=== PATIENT | female | born 1995 | race Caucasian/White ===

== ENCOUNTER 2017-02-23 12:39 | Outpatient (CLI) | payer OTHER ==
[2017-02-23] MEDS ORDERED: BETAMET ACET/BETAMET NA INJ 6 MG/1 ML ONE (12:45)
[2017-02-23] MEDS ORDERED: BETAMET ACET/BETAMET NA INJ 6 MG/1 ML IM ONE (12:54)
== END 2017-02-23 12:55 | disposition home or self-care (01) ==
LOC: LC 12:39
PROVIDERS: ATTEND Obstetrics & Gynecology
DX: Z34.92 Encounter for supervision of normal pregnancy, unspecified, second trimester (principal); Z3A.24 24 weeks gestation of pregnancy
CPT/HCPCS: 96372; J0702

== ENCOUNTER 2017-02-24 13:04 | Outpatient (CLI) | payer OTHER ==
[2017-02-24] MEDS ORDERED: BETAMET ACET/BETAMET NA INJ 6 MG/1 ML ONE (13:09)
[2017-02-24] MEDS ORDERED: BETAMET ACET/BETAMET NA INJ 6 MG/1 ML IM PRN (13:30)
== END 2017-02-24 13:21 | disposition home or self-care (01) ==
LOC: LC 13:04
PROVIDERS: ATTEND Obstetrics & Gynecology Gynecology
DX: Z34.92 Encounter for supervision of normal pregnancy, unspecified, second trimester (principal); Z3A.24 24 weeks gestation of pregnancy
CPT/HCPCS: 96372; J0702

== ENCOUNTER 2018-01-09 11:21 | Emergency (ER) | payer MEDICAID ==
--- NOTE | 2018-01-09 12:18 | ER Document Report ---
ED GI/ - General Chief Complaint: Pelvic Pain Stated Complaint: PELVIC PAIN Time Seen by Provider: 01/09/18 12:18 Mode of Arrival: Ambulatory Information source: Patient Notes: Patient complained of pelvic pain which started this morning. She denies any trauma or injury. TRAVEL OUTSIDE OF THE [place] IN LAST 30 DAYS: No - HPI Patient complains to provider of: Pelvic pain Onset: This morning Timing/Duration: Sudden Quality of pain: Achy, Dull Severity at maximum: Mild Severity in ED: Mild Pain Level: 2 Location: Pelvis Vaginal bleeding (Compared to normal period): None OB ultrasound done: No vitamins taken: No Sexual history: Active Associated symptoms: None Exacerbated by: Denies Relieved by: Denies Similar symptoms previously: No Recently seen / treated by doctor: No - Related Data Allergies/Adverse Reactions: Sulfa (Sulfonamide Antibiotics) Allergy (Verified 01/09/18 11:23) Past Medical History - Social History Smoking Status: Unknown if Ever Smoked Family History: Reviewed & Not Pertinent Review of Systems - Review of Systems Constitutional: denies: Chills, Fever EENT: No symptoms reported Cardiovascular: No symptoms reported Respiratory: No symptoms reported Gastrointestinal: No symptoms reported Genitourinary: No symptoms reported Female Genitourinary: No symptoms reported Musculoskeletal: No symptoms reported Skin: No symptoms reported Hematologic/Lymphatic: No symptoms reported Neurological/Psychological: No symptoms reported -: Yes All other systems reviewed and negative Physical Exam - Vital signs Vitals: Temp Pulse Resp BP Pulse Ox 98.3 F 84 14 135/81 H 99 01/09/18 11:32 01/09/18 11:32 01/09/18 11:32 01/09/18 11:32 01/09/18 11:32 - General General appearance: Appears well, Alert In distress: None - HEENT Head: Normocephalic, Atraumatic Eyes: Normal Pupils: PERRL - Respiratory Respiratory status: No respiratory distress Chest status: Nontender Breath sounds: Normal Chest palpation: Normal - Cardiovascular Rhythm: Regular Heart sounds: Normal auscultation Murmur: No - Abdominal Inspection: Normal Distension: No distension Bowel sounds: Normal Tenderness: Nontender Organomegaly: No organomegaly - Genitourinary External exam: Normal. No: Laceration Speculum exam: Normal, Cervix closed. No: Cervix open, Vaginal discharge, Vaginal lacerations Vaginal bleeding: None Bimanuel exam: Adnexal tenderness - Left. No: Cervical motion tender, Adnexal mass, Uterus enlarged Notes: Rn Plastic Surgery was Ms. Phoebe RN. - Back Back: Normal, Nontender - Extremities General upper extremity: Normal inspection, Nontender, Normal color, Normal ROM , Normal temperature General lower extremity: Normal inspection, Nontender, Normal color, Normal ROM , Normal temperature, Normal weight bearing. No: Breana's sign - Neurological Neuro grossly intact: Yes Cognition: Normal Orientation: AAOx4 [place] Coma Scale Eye Opening: Spontaneous [place] Coma Scale Verbal: Oriented Anaya Coma Scale Motor: Obeys Commands Anaya Coma Scale Total: 15 Speech: Normal Motor strength normal: LUE, RUE, LLE, RLE Sensory: Normal - Psychological Associated symptoms: Normal affect, Normal mood - Skin Skin Temperature: Warm Skin Moisture: Dry Skin Color: Normal Course - Vital Signs Vital signs: Temp Pulse Resp BP Pulse Ox 98.4 F 80 16 124/86 H 100 01/09/18 16:00 01/09/18 16:00 01/09/18 16:00 01/09/18 16:00 01/09/18 16:00 - Laboratory Result Diagrams: 01/09/18 12:48 01/09/18 12:48 Laboratory results interpreted by me: 01/09/18 12:48 WBC 10.7 H Plt Count 503 H - Diagnostic Test Radiology reviewed: Image reviewed, Reports reviewed Discharge - Discharge Clinical Impression: Left ovarian cyst Condition: Stable Disposition: HOME, SELF-CARE Instructions: Ovarian Cyst ([facility]) Additional Instructions: Please follow up with Dr Soliz on Wednesday morning. Return to the ED if your condition worsens. Prescriptions: Ibuprofen 800 mg PO TID PRN #20 tablet PRN Reason: Pain Scale Of 3 Referrals: ENRIQUETA BERNAL MD [Primary Care Provider] - Follow up as needed
[2018-01-09 13:06] LABS: ABSOLUTE EOSINOPHILS # (AUTO) 0.2 10^3/uL (0.0-0.6); ABSOLUTE LYMPHOCYTES (AUTO) 3.3 10^3/uL (0.5-4.7); ABSOLUTE MONOCYTES (AUTO) 0.7 10^3/uL (0.1-1.4); ABSOLUTE NEUT (AUTO) 6.6 10^3/uL (1.7-8.2); BASOPHILS % (AUTO) 0.3 % (0-2); EOSINOPHILS % (AUTO) 1.6 % (0-6); HEMATOCRIT 37.9 % (36.0-47.0); HEMOGLOBIN 13.1 g/dL (12.0-15.5); LYMPHOCYTES % (AUTO) 30.8 % (13-45); MEAN CORPUSCULAR HEMOGLOBIN 28.7 pg (27.0-33.4); MEAN CORPUSCULAR HGB CONC 34.5 g/dL (32.0-36.0); MEAN CORPUSCULAR VOLUME 83 fl (80-97); MONOCYTES % (AUTO) 6.2 % (3-13); PLATELET COUNT 503 10^3/uL (150-450); RED BLOOD COUNT 4.57 10^6/uL (3.72-5.28); RED CELL DISTRIBUTION WIDTH 12.6 % (11.5-14.0); SEGMENTED NEUTROPHILS % (AUTO) 61.1 % (42-78); TOTAL CELLS COUNTED % (AUTO) 100 %; WHITE BLOOD COUNT 10.7 10^3/uL (4.0-10.5)
[2018-01-09 13:08] LABS: APPEARANCE,URINE SLIGHTLY-CLOUDY; BILIRUBIN,URINE NEGATIVE (NEGATIVE); COLOR,URINE YELLOW; GLUCOSE, URINE NEGATIVE (NEGATIVE); KETONES,URINE NEGATIVE (NEGATIVE); LEUKOCYTE ESTERASE,URINE NEGATIVE (NEGATIVE); NITRITE,URINE NEGATIVE (NEGATIVE); PROTEIN,URINE NEGATIVE (NEGATIVE); URINE SPECIFIC GRAVITY 1.023; UROBILINOGEN,URINE NEGATIVE mg/dL (<2.0)
[2018-01-09 13:15] LABS: ALANINE AMINOTRANSFERASE 25 U/L (9-52); ALBUMIN 4.7 g/dL (3.5-5.0); ALKALINE PHOSPHATASE 53 U/L (38-126); ANION GAP 11 (5-19); ASPARTATE AMINO TRANSFERASE 16 U/L (14-36); BILIRUBIN,DIRECT 0.2 mg/dL (0.0-0.4); BILIRUBIN,TOTAL 0.5 mg/dL (0.2-1.3); BLOOD UREA NITROGEN 10 mg/dL (7-20); CALCIUM 9.8 mg/dL (8.4-10.2); CARBON DIOXIDE 26 mmol/L (22-30); CHLORIDE 104 mmol/L (98-107); GLUCOSE 98 mg/dL (75-110); POTASSIUM 4.3 mmol/L (3.6-5.0); SODIUM 140.8 mmol/L (137-145)
[2018-01-09] MEDS ORDERED: MORPHINE SULFATE 10 MG/ML INJ IV ONE (13:19)
[2018-01-09] MEDS ORDERED: ONDANSETRON HCL INJ/PF 4 MG/2 ML SDV IV ONE (13:19)
[2018-01-09 13:47] LABS: RBCS (WET MOUNT) NO RBCS SEEN; T.VAGINALIS (WET MOUNT) COULD NOT PERFORM; WBCS (WET MOUNT) NO WBCS SEEN; YEAST (WET MOUNT) NO YEAST SEEN
[2018-01-09 15:11] LABS: CHLAM PCR NOT DETECTED (NOT DETECT); GON PCR NOT DETECTED (NOT DETECT)
--- NOTE | 2018-01-09 15:16 | RADIOLOGY REPORT (SQ) ---
EXAM DESCRIPTION: U/S NON OB PEL TV W/DOPPLER COMPLETED DATE/TIME: 01/09/2018 2:36 pm REASON FOR STUDY: Pelvic Pain COMPARISON: None. TECHNIQUE: Dynamic and static grayscale images acquired of the pelvis via transvaginal approach and recorded on PACS. Additional selected color Doppler and spectral images recorded. LIMITATIONS: None. FINDINGS: UTERUS: Contour normal. No mass. ENDOMETRIAL STRIPE: No focal or generalized thickening. No masses. CERVIX: Small nabothian cysts. RIGHT OVARY AND DOPPLER: Normal size. No worrisome masses. Normal arterial vascular flow without evid ence for torsion. LEFT OVARY AND DOPPLER: Normal size. 3.5 x 3.3 x 4.2 cm complex left ovarian cyst. Normal arterial v ascular flow without evidence for torsion. FREE FLUID: Moderate free fluid. OTHER: No other significant finding. MEASUREMENTS: UTERUS: 7.2 x 6.0 x 4.2 cm ENDOMETRIAL STRIPE: 10 mm RIGHT OVARY: 3.5 x 2.5 x 2.1 cm LEFT OVARY: 5.7 x 4.7 x 5.1 cm IMPRESSION: 3.5 x 3.3 x 4.2 cm complex left ovarian cyst. No evidence for torsion. Moderate free f luid. TECHNICAL DOCUMENTATION: JOB ID: [id number] [place]-72 2010 [employer]- All Rights Reserved Rev-08/13 Reading location - IP/workstation name: [email or web address]
[2018-01-09 16:01] VITALS: BP 124/86
== END 2018-01-09 16:00 | disposition home or self-care (01) ==
LOC: ER 11:21
DX: N83.202 Unspecified ovarian cyst, left side (principal); R10.2 Pelvic and perineal pain
CPT/HCPCS: 99284; 96374; 96375; 36415; 87210; 85025; 81025; 80053; 81001; 87491; 87591; 76830; 93976; J2270; J2405

== ENCOUNTER 2019-01-01 09:58 | Emergency (ER) | payer MEDICAID ==
[2019-01-01] MEDS ORDERED: KETOROLAC TROMETHAMINE 60 MG/2 ML SDV IM ONE (10:31)
--- NOTE | 2019-01-01 10:31 | ER Document Report ---
ED GI/ - General Chief Complaint: Abdominal Pain Stated Complaint: LOWER ABDOMINAL PAIN Time Seen by Provider: 01/01/19 10:18 Mode of Arrival: Ambulatory Information source: Patient, Relative TRAVEL OUTSIDE OF THE [place] IN LAST 30 DAYS: No - HPI Patient complains to provider of: Pelvic pain - Pt has h/o PCOS and has c/o lower abdominal pain. She denies vag. d/c or bleeding but states her menstrual periods have been more irregular in the past few months. States LNMP was 11/14 - Related Data Allergies/Adverse Reactions: Sulfa (Sulfonamide Antibiotics) Allergy (Verified 01/01/19 10:24) Past Medical History - General Information source: Patient - Social History Smoking Status: Never Smoker Family History: Reviewed & Not Pertinent Patient has suicidal ideation: No Patient has homicidal ideation: No Renal/ Medical History: Denies: Hx Peritoneal Dialysis GI Medical History: Reports: Hx Gastroesophageal Reflux Disease Past Surgical History: Reports: Hx Section, Hx Orthopedic Surgery Review of Systems - Review of Systems Constitutional: No symptoms reported EENT: No symptoms reported Cardiovascular: No symptoms reported Respiratory: No symptoms reported Gastrointestinal: No symptoms reported Female Genitourinary: See HPI, Irregular period Musculoskeletal: No symptoms reported Neurological/Psychological: No symptoms reported -: Yes All other systems reviewed and negative Physical Exam - Vital signs Vitals: Temp Pulse Resp BP Pulse Ox 97.5 F 79 18 145/86 H 98 01/01/19 10:07 01/01/19 10:07 01/01/19 10:07 01/01/19 10:07 01/01/19 10:07 - General In distress: Mild - Respiratory Respiratory status: No respiratory distress Breath sounds: Normal - Cardiovascular Rhythm: Regular Heart sounds: Normal auscultation Murmur: No - Abdominal Inspection: Normal Distension: No distension Bowel sounds: Normal Tenderness: Tender - min TTP bilateral lower quadrants without peritoneal signs. BS + Organomegaly: No organomegaly - Genitourinary External exam: Other - pelvic deferred per pt. request Course - Re-evaluation Re-evalutation: 01/01/19 13:09 pt. felt better after pain meds - expressed desire to go home with - Vital Signs Vital signs: Temp Pulse Resp BP Pulse Ox 97.5 F 79 18 145/86 H 98 01/01/19 10:07 01/01/19 10:07 01/01/19 10:07 01/01/19 10:07 01/01/19 10:07 - Diagnostic Test Radiology reviewed: Reports reviewed - R ovarian cyst Discharge - Discharge Clinical Impression: Ovarian cyst Qualifiers: Laterality: right Qualified Code(s): N83.201 - Unspecified ovarian cyst, right side Condition: Stable Disposition: HOME, SELF-CARE Additional Instructions: rest, take meds as prescribed, return if worse Prescriptions: Tramadol HCl [Ultram] 50 mg PO BID #14 tablet Referrals: REID TORRES MD [ACTIVE STAFF] - Follow up as needed
[2019-01-01 10:53] LABS: APPEARANCE,URINE CLEAR; BILIRUBIN,URINE NEGATIVE (NEGATIVE); COLOR,URINE YELLOW; GLUCOSE, URINE NEGATIVE (NEGATIVE); KETONES,URINE NEGATIVE (NEGATIVE); LEUKOCYTE ESTERASE,URINE NEGATIVE (NEGATIVE); NITRITE,URINE NEGATIVE (NEGATIVE); PROTEIN,URINE NEGATIVE (NEGATIVE); UROBILINOGEN,URINE NEGATIVE mg/dL (<2.0)
--- NOTE | 2019-01-01 12:47 | RADIOLOGY REPORT (SQ) ---
EXAM DESCRIPTION: U/S NON OB PEL TV W/DOPPLER COMPLETED DATE/TIME: 01/01/2019 12:33 pm REASON FOR STUDY: pelvic pain COMPARISON: Pelvic ultrasound 10/07/2018, 01/09/2018. TECHNIQUE: Dynamic and static grayscale images acquired of the pelvis via transvaginal approach and recorded on PACS. Additional selected color Doppler and spectral images recorded. LIMITATIONS: None. FINDINGS: UTERUS: The uterus measures 7.1 x 4.9 x 4.5 cm. No focal myometrial mass was seen. ENDOMETRIAL STRIPE: The endometrium measures 1.4 cm in double wall thickness. CERVIX: The cervix measures 1.9 cm in length. RIGHT OVARY AND DOPPLER: The right ovary measures 5.4 x 3.5 x 2.9 cm. Flow by Doppler was shown to t he right ovary. Small follicles are noted. There is a 3.9 x 1.3 x 1.0 cm cyst. LEFT OVARY AND DOPPLER: The left ovary measures 2.7 x 2.5 x 3.6 cm. Flow by Doppler was shown to the left ovary. Small follicles are noted. FREE FLUID: Small amount of free fluid. IMPRESSION: 3.9 cm cyst at the right ovary. Small amount of free pelvic fluid. TECHNICAL DOCUMENTATION: JOB ID: [id number] [place]-[id number] 2010 [employer]- All Rights Reserved Rev-08/13 Reading location - IP/workstation name: [email or web address]
[2019-01-01 13:22] VITALS: BP 136/83
== END 2019-01-01 13:22 | disposition home or self-care (01) ==
LOC: ER 09:58
DX: N83.201 Unspecified ovarian cyst, right side (principal); R10.30 Lower abdominal pain, unspecified; R10.2 Pelvic and perineal pain; Z88.2 Allergy status to sulfonamides
CPT/HCPCS: 99284; 96374; 81025; 81001; 76830; 93976; J1885

== ENCOUNTER 2019-08-18 00:39 | Observation (INO) | payer MEDICAID ==
[2019-08-18] MEDS ORDERED: LORAZEPAM INJ 2 MG/1 ML VIAL IV ONE ×2 (01:03→06:23)
[2019-08-18] MEDS ORDERED: PHENYTOIN SODIUM INJ/PF 250 MG/5 ML SDV IV ONE ×2 (01:03→08:00)
[2019-08-18] MEDS ORDERED: DIPHENHYDRAMINE HCL 50 MG/ML VIAL IV ONE (01:07)
[2019-08-18 01:31] LABS: ABSOLUTE BASOPHILS # (AUTO) 0.1 10^3/uL (0.0-0.2); ABSOLUTE EOSINOPHILS # (AUTO) 0.1 10^3/uL (0.0-0.6); ABSOLUTE LYMPHOCYTES (AUTO) 4.2 10^3/uL (0.5-4.7); ABSOLUTE MONOCYTES (AUTO) 0.8 10^3/uL (0.1-1.4); ABSOLUTE NEUT (AUTO) 6.5 10^3/uL (1.7-8.2); BASOPHILS % (AUTO) 0.5 % (0-2); EOSINOPHILS % (AUTO) 0.8 % (0-6); HEMATOCRIT 34.5 % (36.0-47.0); MEAN CORPUSCULAR HEMOGLOBIN 29.1 pg (27.0-33.4); MEAN CORPUSCULAR HGB CONC 34.9 g/dL (32.0-36.0); MEAN CORPUSCULAR VOLUME 84 fl (80-97); MONOCYTES % (AUTO) 6.6 % (3-13); PLATELET COUNT 412 10^3/uL (150-450); RED BLOOD COUNT 4.13 10^6/uL (3.72-5.28); RED CELL DISTRIBUTION WIDTH 12.5 % (11.5-14.0); SEGMENTED NEUTROPHILS % (AUTO) 56.1 % (42-78); TOTAL CELLS COUNTED % (AUTO) 100 %; WHITE BLOOD COUNT 11.5 10^3/uL (4.0-10.5)
--- NOTE | 2019-08-18 01:36 | ER Document Report ---
ED General - General Chief Complaint: Seizure Stated Complaint: SEIZURE Time Seen by Provider: 08/18/19 01:03 Mode of Arrival: Medic Information source: Emergency Med Personnel - via discussion with family Notes: 08/18/19 01:07 - ED Nursing Note by DAIANA GORE Num: [id number] : 1995 Patient Age: 24 patient presents to ED via EMs from home for c/o seizures. per EMS, they witness three seizures prior to arrival to [facility]. patient does not have hx of seizures. upon arrival patient in postictal state. patient responsive to voice, pupils dilated. patient had seizure two minute seizure from [id number]. this RN called Dr. Burns to bedside. patient placed on full cardiac monitoring and 2L NC. my notes 24-year-old female arrived by EMS with witnessed 2-3 seizures in route by EMS. Patient does not have any seizure history but does have a history of eclampsia while she was . Patient was just begun on Cymbalta and Lyrica and has been acting goofy according to family while on these medicines. Patient was given IV Versed 5 mg by EMS but was witnessed by nursing to have a grand mal seizure upon arrival. Patient was written for Ativan 1 mg IV and Dilantin 1 g IV by my orders. TRAVEL OUTSIDE OF THE [place] IN LAST 30 DAYS: No - HPI Onset: Just prior to arrival Onset/Duration: Sudden, Persistent, Worse Quality of pain: Achy Severity: Mild Associated symptoms: Weakness Exacerbated by: Other - in active seizure during exam Relieved by: denies: Other Similar symptoms previously: Yes - eclampsia Recently seen / treated by doctor: No - Related Data Allergies/Adverse Reactions: Sulfa (Sulfonamide Antibiotics) Allergy (Verified 01/01/19 10:24) Past Medical History - General Information source: Emergency Med Personnel - Social History Smoking Status: Unknown if Ever Smoked Cigarette use (# per day): No Chew tobacco use (# tins/day): No Smoking Education Provided: No Frequency of alcohol use: unknown Drug Abuse: Other - unknown Lives with: Family Family History: Reviewed & Not Pertinent Patient has suicidal ideation: No Patient has homicidal ideation: No Renal/ Medical History: Denies: Hx Peritoneal Dialysis GI Medical History: Reports: Hx Gastroesophageal Reflux Disease Past Surgical History: Reports: Hx Section, Hx Orthopedic Surgery Review of Systems - Review of Systems -: Yes ROS unobtainable due to patient's medical condition Constitutional: Weakness Physical Exam - Vital signs Vitals: Temp 97.8 F 08/18/19 00:40 Interpretation: Tachycardic - General General appearance: Lethargic - HEENT Head: Normocephalic, Atraumatic Eyes: Other - dilated pupils Conjunctiva: Normal Cornea: Normal Eyelashes: Normal Pupils: Dilated Ears: Normal External canal: Normal Sinus: Normal Nasal: Normal Mouth/Lips: Normal Mucous membranes: Normal Pharynx: Normal Neck: Normal - Respiratory Respiratory status: No respiratory distress Chest status: Nontender Breath sounds: Normal Chest palpation: Normal - Cardiovascular Rhythm: Tachycardia Murmur: No - Abdominal Inspection: Normal Distension: No distension Organomegaly: No organomegaly - Rectal Tenderness: No - Genitourinary External exam: Normal - Back Back: Normal - Extremities General upper extremity: Normal inspection, Other - Patient moving hands and rotational movement of the wrist and fingers nonpurposeful General lower extremity: Normal inspection - Except for downgoing toes - Neurological Cognition: Confused Anaya Coma Scale Eye Opening: To Pain Anaya Coma Scale Verbal: Confused Anaya Coma Scale Motor: Localizes to Pain [place] Coma Scale Total: 11 Speech: Other - no speech - Psychological Associated symptoms: Confused, Restlessness - Skin Skin Temperature: Warm Skin Moisture: Dry Course - Vital Signs Vital signs: Temp Pulse Resp BP Pulse Ox 97.8 F 17 113/68 98 08/18/19 01:01 08/18/19 04:01 08/18/19 04:00 08/18/19 04:01 - Laboratory Result Diagrams: 08/18/19 01:21 08/18/19 01:21 Laboratory results interpreted by me: 08/18/19 08/18/19 08/18/19 01:21 01:21 01:21 WBC 11.5 H Hct 34.5 L Chloride 109 H Carbon Dioxide 21 L Glucose 124 H Ur Leukocyte Esterase Salicylates < 1.0 L 08/18/19 03:43 WBC Hct Chloride Carbon Dioxide Glucose Ur Leukocyte Esterase TRACE H Salicylates - Diagnostic Test Radiology reviewed: Reports reviewed - EKG Interpretation by Me EKG shows normal: Sinus rhythm Rate: Tachycardia - 103 bpm Critical Care Note - Critical Care Note Total time excluding time spent on procedures (mins): 90 Comments: I discussed this case with Dr. Kalyan Sanchez and he advises alcohol salicylate level and finalization of urine and UDS before admission call him back with results. Kalyan Ochoa was recalled around 0 500 and he advised [facility] telemetry Discharge - Discharge Clinical Impression: Seizure, Status epilepticus Condition: Fair Disposition: ADMITTED INPATIENT Admitting Provider: Daniel (Hospitalist) Unit Admitted: Telemetry Additional Instructions: Transfer patient to [facility] telemetry
[2019-08-18 01:55] LABS: ALBUMIN 4.2 g/dL (3.5-5.0); ALKALINE PHOSPHATASE 61 U/L (38-126); ANION GAP 8 (5-19); ASPARTATE AMINO TRANSFERASE 20 U/L (14-36); BILIRUBIN,TOTAL 0.2 mg/dL (0.2-1.3); BLOOD UREA NITROGEN 12 mg/dL (7-20); CALCIUM 9.2 mg/dL (8.4-10.2); CARBON DIOXIDE 21 mmol/L (22-30); CHLORIDE 109 mmol/L (98-107); GLUCOSE 124 mg/dL (75-110); POTASSIUM 3.6 mmol/L (3.6-5.0)
[2019-08-18 02:25] LABS: CREATINE KINASE MB 1.46 ng/mL (<4.55)
[2019-08-18 02:31] LABS: TROPONIN I < 0.012 ng/mL
[2019-08-18 03:56] LABS: APPEARANCE,URINE CLEAR; BILIRUBIN,URINE NEGATIVE (NEGATIVE); COLOR,URINE YELLOW; GLUCOSE, URINE NEGATIVE (NEGATIVE); KETONES,URINE NEGATIVE (NEGATIVE); LEUKOCYTE ESTERASE,URINE TRACE (NEGATIVE); NITRITE,URINE NEGATIVE (NEGATIVE); PROTEIN,URINE NEGATIVE (NEGATIVE); URINE SPECIFIC GRAVITY 1.013; UROBILINOGEN,URINE NEGATIVE mg/dL (<2.0)
--- NOTE | 2019-08-18 04:04 | RADIOLOGY REPORT (SQ) ---
INDICATION: seizure. COMPARISON: None CORRELATION: None TECHNIQUE: Noncontrast spiral axial CT images were obtained from the skull base to vertex. This exam was performed according to our departmental dose-optimization program, which includes automated exposure control, adjustment of the mA and/or kV according to patient size and/or use of iterative reconstruction techniques. FINDINGS: There is no evidence of acute intracranial hemorrhage, midline shift, mass effect or mass lesion. Meidna-white differentiation is normal. There is no evidence of acute large territory infarct. Ventricles and extracerebral spaces are within normal limits, for age. The visualized paranasal sinuses are grossly clear. The orbits and eyeballs are unremarkable. The mastoid air cells are clear. Skull base and calvarium appear intact. IMPRESSION: No acute intracranial process is identified.
[2019-08-18 04:06] LABS: ALCOHOL < 10 mg/dL (NONE DETECTED); SALICYLATE < 1.0 mg/dL (2.0-20.0)
--- NOTE | 2019-08-18 04:08 | RADIOLOGY REPORT (SQ) ---
CLINICAL INDICATION: seizure. TECHNIQUE: A single portable AP view was obtained of the chest at 0331 hours. COMPARISON: None. FINDINGS: The cardiomediastinal silhouette is normal. The lungs are grossly clear. No evidence of effusion or pneumothorax. The visualized bones are unremarkable. Lungs of low volume IMPRESSION: No evidence of active intrathoracic disease. Lungs of low volume but clear
[2019-08-18 04:15] LABS: URINE AMPHETAMINES SCREEN NEGATIVE; URINE BARBITURATES SCREEN NEGATIVE; URINE COCAINE SCREEN NEGATIVE; URINE MARIJUANA (THC) SCREEN NEGATIVE; URINE METHADONE SCREEN NEGATIVE; URINE PHENCYCLIDINE SCREEN NEGATIVE
[2019-08-18 04:20] LABS: URINE BENZODIAZEPINES SCREEN UNCONFIRMED POSITIVE
[2019-08-18] MEDS ORDERED: MAGNESIUM HYDROXIDE SUSP 30 ML UDCUP PO PRN (05:32)
[2019-08-18] MEDS ORDERED: MAG HYDROX/AL HYDROX/SIMETH SUSP 30 ML UDCUP PO PRN (05:32)
[2019-08-18] MEDS ORDERED: IPRATROPIUM/ALBUTEROL 0.5-2.5 MG/3 ML AMPUL NEB PRN (05:32)
--- NOTE | 2019-08-18 06:08 | PDOC H&P ---
History of Present Illness Admission Date/PCP: 08/18/19 05:15 Patient complains of: Seizure History of Present Illness: KAMERON GIPSON is a 24 year old female with a past medical history of obesity, asthma, fibromyalgia on Zanaflex, Cymbalta and Lyrica started 3 days ago. She presents after several witnessed partial seizures prompting a call to EMS who witnessed another seizure she received Versed. In the emergency department she had another seizure receiving Ativan, Benadryl and Dilantin. Patient is awake and alert with odd affect and echolalia moving all 4 extremities denying pain. Work-up was otherwise unremarkable for metabolic derangement or CT head abnormality. She is referred to the hospitalist for admission. Past Medical History Cardiac Medical History: Reports: None Pulmonary Medical History: Reports: Asthma EENT Medical History: Reports: None Neurological Medical History: Reports: None Denies: Migraine, Seizures Endocrine Medical History: Reports: None Renal/ Medical History: Reports: None Malignancy Medical History: Reports: None GI Medical History: Reports: Gastroesophageal Reflux Disease Psychiatric Medical History: Reports: None Denies: Alcohol Dependency, Schizoaffective Disorder, Substance Abuse, Tobacco Dependency Past Surgical History Past Surgical History: Reports: Section, Orthopedic Surgery Social History Information Source: Patient Lives with: Family Smoking Status: Unknown if Ever Smoked Electronic Cigarette use?: No Frequency of Alcohol Use: None Drugs: None - Advance Directive Resuscitation Status: Full Code Family History Family History: Hypertension Parental Family History Reviewed: Yes Children Family History Reviewed: Yes Sibling(s) Family History Reviewed.: Yes Medication/Allergy Home Medications: Ibuprofen 800 mg PO TID PRN #20 tablet 01/09/18 Famotidine [Pepcid 40 mg Tablet] 40 mg PO BID #60 tablet 10/07/18 Sucralfate [Carafate 1 gm Tablet] 1 gm PO QID #20 tablet 10/07/18 Tramadol HCl [Ultram] 50 mg PO BID #14 tablet 01/01/19 Allergies/Adverse Reactions: Sulfa (Sulfonamide Antibiotics) Allergy (Verified 01/01/19 10:24) Review of Systems Constitutional: ABSENT: chills, fever(s), headache(s), weight gain, weight loss Eyes: ABSENT: visual disturbances Ears: ABSENT: hearing changes Cardiovascular: ABSENT: chest pain, dyspnea on exertion, edema, orthropnea, palpitations Respiratory: ABSENT: cough, hemoptysis Gastrointestinal: ABSENT: abdominal pain, constipation, diarrhea, hematemesis, hematochezia, nausea, vomiting Genitourinary: ABSENT: dysuria, hematuria Musculoskeletal: ABSENT: joint swelling Integumentary: ABSENT: rash, wounds Neurological: ABSENT: abnormal gait, abnormal speech, confusion, dizziness, focal weakness, syncope Psychiatric: ABSENT: anxiety, depression, homidical ideation, suicidal ideation Endocrine: ABSENT: cold intolerance, heat intolerance, polydipsia, polyuria Hematologic/Lymphatic: ABSENT: easy bleeding, easy bruising Physical Exam Vital Signs: Temp Pulse Resp BP Pulse Ox 97.7 F 17 107/72 98 08/18/19 05:09 08/18/19 05:01 08/18/19 05:00 08/18/19 05:01 Intake & Output 08/16/19 08/17/19 08/18/19 11:59 11:59 11:59 Weight 91.1 kg General appearance: PRESENT: no acute distress, cooperative, obese Head exam: PRESENT: atraumatic, normocephalic Eye exam: PRESENT: conjunctiva pink, EOMI, PERRLA. ABSENT: scleral icterus Ear exam: PRESENT: normal external ear exam Mouth exam: PRESENT: moist, tongue midline Neck exam: ABSENT: carotid bruit, JVD, lymphadenopathy, thyromegaly Respiratory exam: PRESENT: clear to auscultation oneil. ABSENT: rales, rhonchi, wheezes Cardiovascular exam: PRESENT: RRR. ABSENT: diastolic murmur, rubs, systolic murmur Pulses: PRESENT: normal dorsalis pedis pul Vascular exam: PRESENT: normal capillary refill GI/Abdominal exam: PRESENT: normal bowel sounds, soft. ABSENT: distended, guarding, mass, organolmegaly, rebound, tenderness Rectal exam: PRESENT: deferred Extremities exam: PRESENT: full ROM. ABSENT: calf tenderness, clubbing, pedal edema Neurological exam: PRESENT: alert, awake, oriented to person, oriented to place, oriented to time, oriented to situation, CN II-XII grossly intact, other - Intermittent echolalia and stutter. ABSENT: motor sensory deficit Psychiatric exam: PRESENT: normal mood, unusual affect. ABSENT: homicidal ideation, suicidal ideation Skin exam: PRESENT: dry, intact, warm. ABSENT: cyanosis, rash Results Laboratory Results: 08/18/19 01:21 08/18/19 01:21 08/18/19 08/18/19 08/18/19 01:21 01:21 03:43 WBC 11.5 H RBC 4.13 Hgb 12.0 Hct 34.5 L MCV 84 MCH 29.1 MCHC 34.9 RDW 12.5 Plt Count 412 Seg Neutrophils % 56.1 Sodium 137.6 Potassium 3.6 Chloride 109 H Carbon Dioxide 21 L Anion Gap 8 BUN 12 Creatinine 0.93 Est GFR ( Amer) > 60 Glucose 124 H Calcium 9.2 Total Bilirubin 0.2 AST 20 Alkaline Phosphatase 61 Total Protein 7.0 Albumin 4.2 Urine Color YELLOW Urine Appearance CLEAR Urine pH 6.0 Ur Specific [place] 1.013 Urine Protein NEGATIVE Urine Glucose (UA) NEGATIVE Urine Ketones NEGATIVE Urine Blood NEGATIVE Urine Nitrite NEGATIVE Ur Leukocyte Esterase TRACE H Urine WBC (Auto) 2 Urine RBC (Auto) 2 08/18/19 01:21 CK-MB (CK-2) 1.46 Troponin I < 0.012 Impressions: Chest X-Ray 08/18/19 01:06 IMPRESSION: No evidence of active intrathoracic disease. Lungs of low volume but clear Head CT 08/18/19 01:06 IMPRESSION: No acute intracranial process is identified. Assessment and Plan - Diagnosis (1) Seizure Is this a current diagnosis for this admission?: Yes Plan: Secondary to polypharmacy with additive effects of Zanaflex, Cymbalta and newly started Lyrica. Discontinue Lyrica, supportive care and education. (2) Fibromyalgia Is this a current diagnosis for this admission?: Yes Plan: Complicated by polypharmacy, Lyrica discontinued, consider outpatient physical therapy. (3) Polypharmacy Is this a current diagnosis for this admission?: Yes Plan: Lyrica discontinued. - Time Time Spent with patient: 25-34 minutes - Inpatient Certification Medical Necessity: Need Close Monitoring Due to Risk of Patient Decompensation
[2019-08-18] MEDS: HEPARIN SOD (PORCINE) 5,000 UNIT/ML 1 ML VIAL SUBCUT SCH ×3 (07:04→22:02)
[2019-08-18] MEDS ORDERED: LORAZEPAM INJ 2 MG/1 ML VIAL IV PRN (07:38)
--- NOTE | 2019-08-18 08:01 | EKG REPORT ---
SEVERITY:- OTHERWISE NORMAL ECG - SINUS TACHYCARDIA : Confirmed by: Ana Keenan MD 18-Aug-2019 08:01:11
[2019-08-18 08:24] LABS: ANION GAP 11 (5-19); BLOOD UREA NITROGEN 10 mg/dL (7-20); CALCIUM 9.2 mg/dL (8.4-10.2); CARBON DIOXIDE 20 mmol/L (22-30); CHLORIDE 108 mmol/L (98-107); CREATINE KINASE 133 U/L (30-135); GLUCOSE 115 mg/dL (75-110); POTASSIUM 3.7 mmol/L (3.6-5.0)
[2019-08-18] MEDS: ACETAMINOPHEN 325 MG TABLET PO PRN ×2 (13:12→22:12)
[2019-08-18] MEDS: METOPROLOL SUCCINATE 25 MG TAB.SR.24H PO SCH ×2 (13:13→22:08)
--- NOTE | 2019-08-18 16:52 | NEURO WORKBENCH EEG REPORT ---
EEG Report Patient: Christine Denton ID: [id number] Referring Doctor: Anna Drake DOS: 08/18/2019 Medications: Zyrtec, Cymbalta, Tylenol, Porcine, Melatonin, Toprol History This is a 24 year old right handed female with a history of asthma, GERD, caesarian section, orthopedic surgery, PCOS, endometriosis, admitted with seizure. This EEG was requested for seizures. EEG Interpretation This EEG was recorded in the awake and drowsy states. The awake EEG is characterized by a well organized background with a briefly noted and reactive posterior dominant rhythm of 10.5 Hz. The remainder of the background was characterized by a combination of alpha excessive diffuse beta activity. Drowsiness was characterized by slowing of the background rhythms. Vertex waves were seen in the midline head regions. Photic stimulation resulted in a good driving response. There were no epileptiform abnormalities. The EKG showed a regular rhythm over 100 BPM. EEG Classification * Excessive beta activity * EKG - tachycardia EEG Impression This EEG is mildly abnormal. Excessive beta activity can be seen with certain medications (e.g. benzodiazepines). The EKG findings may require further investigation. INTERPRETING NEUROLOGIST: Mariely Breen MD, FRCPC Board Certified in Neurology, with special qualification in Child Neurology, and in Clinical Neurophysiology [facility]
[2019-08-18] MEDS ORDERED: FLUTICASONE PROPIONATE HFA 110 MCG/PUFF 12 GM MDI IH SCH (18:00)
[2019-08-18] MEDS ORDERED: FLUTICASONE PROPIONATE IH SCH (18:00)
--- NOTE | 2019-08-18 19:13 | PDOC PROGRESS REPORT ---
Subjective Progress Note for:: 08/18/19 Subjective:: KAMERON GIPSON is a 24 year old female with a past medical history of obesity, asthma, fibromyalgia admitted early this morning by the chief merchandising officer for new onset seizure activity. Patient was seen on morning rounds when called to the bedside by the nurse aides due to seizure-like activity. The patient was found to have corticate posturing of her bilateral upper extremities with her arms drawn up and fingers clenched but decerebrate posturing of her lower extremities with her feet and toes flexed. Patient was noted to have an arched back with slight rhythmic movement of her head. I watched from the doorway for a few seconds before the NA told the patient that "you provider is here, the doc is here to see you." At that time, the patient's rhythmic movement increased substantially and she began moaning. Upon sternal rub, the seizurelike activity immediately ceased, the patient opened her eyes, and began crying with stuttered statements of "Where am I?" and "It happened again!" She did not bite her tongue, vomit, or experience incontinence. A long discussion was had with the patient regarding her medical history. She reports that she has been seen by [place] [facility] and has a local neurologist Dr. Varghese. She tells me that she thinks she had a stroke 1 year ago which prompted a full evaluation for MS. She states that she saw Dr. Varghese yesterd ay and was told that he "doesn't treat fibromyalgia and that I needed to see my PCP." She tells me that all of her symptoms began 1 year ago. She admits to increased life stressors as she had twin premature boys that are now 2.5 years old and at least one has chronic medical problems that require frequent doctor and therapy visits. She also admits to increased social isolation since COVID19. She denies overt depression. Patient is advised that she is not demonstrating "textbook seizures," and so while we continue to work up her seizures with labs and EEG, I would like for the mental health team meet her. She is agreeable to the plan of care at conclusion of our conversation and had no further questions or concerns. Reason For Visit: SEIZURE Physical Exam Vital Signs: Temp Pulse Resp BP Pulse Ox 98.6 F 114 H 16 126/77 H 97 08/18/19 16:29 08/18/19 17:09 08/18/19 17:09 08/18/19 16:29 08/18/19 17:09 Intake & Output 08/17/19 08/18/19 08/19/19 06:59 06:59 06:59 Output Total 1 Balance -1 Weight 91.1 kg 88 kg General appearance: PRESENT: no acute distress, well-developed, well-nourished - overweight Head exam: PRESENT: atraumatic, normocephalic Eye exam: PRESENT: conjunctiva pink, EOMI, PERRLA. ABSENT: scleral icterus Ear exam: PRESENT: normal external ear exam Mouth exam: PRESENT: moist, tongue midline Respiratory exam: PRESENT: clear to auscultation oneil, symmetrical, unlabored. ABSENT: rales, rhonchi, wheezes Cardiovascular exam: PRESENT: RRR, +S1, +S2. ABSENT: diastolic murmur, rubs, systolic murmur Pulses: PRESENT: normal dorsalis pedis pul Vascular exam: PRESENT: normal capillary refill Extremities exam: PRESENT: full ROM. ABSENT: calf tenderness, clubbing, pedal edema Neurological exam: PRESENT: alert, awake, oriented to person, oriented to place, oriented to time, oriented to situation, CN II-XII grossly intact. ABSENT: motor sensory deficit Psychiatric exam: PRESENT: depressed, other - tearful. ABSENT: homicidal ideat ion, suicidal ideation Skin exam: PRESENT: dry, intact, warm. ABSENT: cyanosis, rash Results Laboratory Results: 08/18/19 01:21 08/18/19 08:00 08/18/19 08/18/19 08/18/19 01:21 01:21 01:21 WBC 11.5 H RBC 4.13 Hgb 12.0 Hct 34.5 L MCV 84 MCH 29.1 MCHC 34.9 RDW 12.5 Plt Count 412 Seg Neutrophils % 56.1 Sodium 137.6 Potassium 3.6 Chloride 109 H Carbon Dioxide 21 L Anion Gap 8 BUN 12 Creatinine 0.93 Est GFR ( Amer) > 60 Glucose 124 H Lactic Acid Calcium 9.2 Total Bilirubin 0.2 AST 20 Alkaline Phosphatase 61 Total Protein 7.0 Albumin 4.2 TSH 2.34 Urine Color Urine Appearance Urine pH Ur Specific [place] Urine Protein Urine Glucose (UA) Urine Ketones Urine Blood Urine Nitrite Ur Leukocyte Esterase Urine WBC (Auto) Urine RBC (Auto) 08/18/19 08/18/19 08/18/19 03:43 08:00 12:02 WBC RBC Hgb Hct MCV MCH MCHC RDW Plt Count Seg Neutrophils % Sodium 139.3 Potassium 3.7 Chloride 108 H Carbon Dioxide 20 L Anion Gap 11 BUN 10 Creatinine 0.87 Est GFR ( Amer) > 60 Glucose 115 H Lactic Acid 1.8 Calcium 9.2 Total Bilirubin AST Alkaline Phosphatase Total Protein Albumin TSH Urine Color YELLOW Urine Appearance CLEAR Urine pH 6.0 Ur Specific [place] 1.013 Urine Protein NEGATIVE Urine Glucose (UA) NEGATIVE Urine Ketones NEGATIVE Urine Blood NEGATIVE Urine Nitrite NEGATIVE Ur Leukocyte Esterase TRACE H Urine WBC (Auto) 2 Urine RBC (Auto) 2 08/18/19 08/18/19 01:21 08:00 Creatine Kinase 133 CK-MB (CK-2) 1.46 Troponin I < 0.012 Impressions: Chest X-Ray 08/18/19 01:06 IMPRESSION: No evidence of active intrathoracic disease. Lungs of low volume but clear Head CT 08/18/19 01:06 IMPRESSION: No acute intracranial process is identified. Assessment and Plan - Diagnosis (1) Seizure Is this a current diagnosis for this admission?: Yes Plan: Pseudoseizure. Possibly related to polypharmacy with new addition of Lyrica started 3 days ago. CBC normal, BMP unremarkable. Normal troponin, normal TSH, normal CK, normal lactic acid. Head CT benign. EEG was mildly abnormal with excessive beta activity which is commonly seen with benzodiazepine; patient received 2 mg of Ativan ~ 3.5 hrs prior to testing. After witnessing seizure-like activity, I called Dr. Varghese to discuss her prior neuro work up. Dr. Varghese confirms that she was seen at [place] [facility] and had an extensive work-up that was ultimately normal. She was discharged from their practice with a diagnosis of fibromyalgia. Dr. Varghese stated that he had seen the patient in his office for a follow up appointment yesterday morning and had informed her that he would no longer providing for her care or writing her prescriptions. He indicated to me that he was concerned the patient might be displaying symptoms of Munchhausen's. Patient received appropriate loading dose of IV Dilantin. No further Dilantin dosing at this time as do not think that additional medication prescriptions will benefit this patient; especially as she is displaying pseudoseizures in my presence. No suspicion for seizure or epileptic disorder. In fact, focus should be spent on decreasing the patient's anxiety regarding chronic health problems and reducing her medications. Ativan is discontinued. Mental health consultation requested. (2) Fibromyalgia Is this a current diagnosis for this admission?: Yes Plan: Complicated by polypharmacy Likely underlying depressive disorder. Lyrica discontinued. Continue home dose Cymbalta. Mental Health consultation pending. (3) Polypharmacy Is this a current diagnosis for this admission?: Yes Plan: Medications reconcilled Currently prescribed Amitiza, Cymbalta, Lyrica, primidone, Topamax, Zanaflex, Zyrtec, Singulair, Flonase. Only Cymbalda, Zyrtec, and Flonase continued at this time. Recommend PCP discontinue as many medications as tolerated. - Time Time Spent with patient: 35 or more minutes Medications reviewed and adjusted accordingly: Yes Anticipated discharge: Home Within: within 24 hours - pending mental health evaluation
--- NOTE | 2019-08-18 19:30 | Progress Note ---
Provider Note Provider Note: Spoke with patient's mother, Mrs. Denton, by phone this evening. Discussed the patient's benign evaluation (blood work, Head CT, EEG). Discussed that the patient's seizure activity is suggestive of pseudoseizures and my recommendations for a Mental Health evaluation. Patient's mother was satisfied by the current work up and plan of care. She agrees with need for mental health evaluation; she indicates that she is concerned that her daughter may have depression/anxiety/PTSD related to the premature delivery of her twins and the 3 month NICU stay ~2 years ago. Reports that on most days her daughter is very happy and engaged with her children, but that she has had a lot of difficulty with her fibromyalgia recently that had "weighed her down." Patient's mother also indicates that she wishes her daughter were on fewer medications; she would appreciate the mental health teams evaluation. She states that she plans to encourage her daughter to seek out a therapist and psychiatrist for her future mental health needs. Mother is informed that I anticipate that patient will be ready for d/c tomorrow afternoon following mental health evaluation; however, they may have recommendations for extended stay/psychiatric hospitalization following their face to face visit with the patient. Mother is understanding and in agreement with plan.
[2019-08-18] MEDS: MELATONIN 3 MG TABLET PO SCH (22:08)
--- NOTE | 2019-08-18 22:57 | PSYCHOLOGICAL NOTE ---
Psych Note - Psych Note Date seen by psych provider: 08/18/19 Time seen by psych provider: 22:45 - [id number] Psych Note: Presenting Problem: Patient is a 24 year old female who admitted to hospitalist services today (08/18/2019) at 0650 for seizure, Fibromyalgia and Polypharmacy (Lyrica discontinued). Psychiatric consult ordered for pseudoseizures. Patient was sleeping in dark room. Turned on the sink light only. Patient denied previous MH history (previous medication, therapy or inpatient hospitalizations). She stated her PCM at [facility] prescribed her Cymbalta 3-4 months ago after diagnosing her with Fibromyalgia (tingling and numbness in hands and feet/muscle pain and weakness). She stated she had difficulty just getting out of bed, didn't want to go anywhere and didn't want to even shower. Patient stated the Cymbalta "has helped with fatigue, to stay awake, some pain and depression." Patient stated she has been in [facility]) for 2 years or longer for Migraines and "it helps." When asked about her neurologist stopping medication she said he did not, then commented on Lyrica and acknowledged she just saw her neurologist yesterday. She identified she "had a sleep study Wednesday night, they were making sure I did not have MS. all they did was a Brain MRI no spinal tap, and I was feeling great prior to." Patient identified her local neurologist is Dr. Varghese which is who she had the appointment with yesterday and she stated "he manages my migraines." She stated she "has also seen a female neurologist in [place] who prescribed her Zanaflex and Micalen for tremors in her hand." Patient reported she resides with her fiance and 2 children. She denied SI/HI. Patient identified she has been dealing with issues over the past year. She stated her mother also has tingling in hands and feet, more pain all over but no seizures. Patient was alert and oriented to self, person, place, time and situation. Mood was depressed with flat affect (patient had been sleeping, woke her up, she presented fatigued- heavy eyelids/eyes rolling back at times/lethargic). She denied SI/HI and these were never presenting concerns. Patient did not appear to be responding to internal stimuli as evidenced by trying to make eye contact and answering questions appropriately when addressed. Conversational speech was slow in rate and she stuttered often (per patient stuttering is something new). Thought processes were linear. Intellectual abilities are estimated to be average. Insight, judgment and impulse control were fair as evidenced by being engaged and having dialogue conversation. Collateral: Obtained collateral from pako Bloomon JR: BLAINE HILL ([phone]) using patient's cell phone and in her room, this was near the end of evaluation. Patient made the phone call and gave verbal consent to speak with him. He confirmed patient has been dealing with issues over the past year. He described her "mentally as being the same, nothing out of the ordinary." He described her "physically being limited, hurting more (hands, arms), he can tell there is pain by her slowing down in terms of task completion (like washing dishes). He identified they have twins, she is home all day with them and does the house chores since he runs a [employer]. He stated "she has not stopped with all these things but is just slower at completing things." He further noted she has a history of asthma but played sports like softball in High School without difficulty. He noted the past 2-3 weeks she gets out of breath easily (walking up small flight of stairs on porch getting into the house). He admitted the stuttering is new then commented "she often has to stop to think about what she is going to say." He identified they have been together and known each other for 7 years and things have really changed in the past year with all the medical stuff. During phone call with pako patient laid down. By the end of the phone call she had sat up and started vomiting in vomit bag she had on her bed. She stated she has been nauseous all day. During this time the eyes rolling back increased. Spoke to patient to try to keep her talking. The eye rolling worsened. This clinician went to notify medical staff. Initially patient was moaning/sighing and when this clinician said her name/can you hear me she responded by nodding yes. Her face and jaw seemed to tense up. Then she was not responsive to this clinician saying her name/can you hear me. Attending nurse noted she just came on at 1900 but similar episodes had been going on all day, the ones when she was attending nurse patient was "more responsive then currently." She got vital machine to check vitals and said she was reaching out to the provider. Diagnosis: Pseudoseizures Impression/Plan: Consulted with Dr. Mejia regarding the management and care of patient. She stated need to find out more about home stress (specifically find out how old twins are, if any complications during , any other new stress at home). Will check in with patient an/or tomorrow (08/19/2019).
[2019-08-19] MEDS: HEPARIN SOD (PORCINE) 5,000 UNIT/ML 1 ML VIAL SUBCUT SCH ×3 (05:10→21:26)
[2019-08-19] MEDS: ACETAMINOPHEN 325 MG TABLET PO PRN ×2 (06:09→18:17)
[2019-08-19 09:13] LABS: ANION GAP 11 (5-19); BLOOD UREA NITROGEN 10 mg/dL (7-20); CALCIUM 9.6 mg/dL (8.4-10.2); CARBON DIOXIDE 22 mmol/L (22-30); CHLORIDE 105 mmol/L (98-107); CREATINE KINASE 92 U/L (30-135); GLUCOSE 132 mg/dL (75-110); POTASSIUM 4.2 mmol/L (3.6-5.0)
[2019-08-19] MEDS: METOPROLOL SUCCINATE 25 MG TAB.SR.24H PO SCH ×2 (09:50→22:28)
[2019-08-19] MEDS: CETIRIZINE 10 MG TABLET PO SCH (09:50)
[2019-08-19] MEDS: DULOXETINE HCL 30 MG CAPSULE.DR PO SCH (09:50)
[2019-08-19] MEDS ORDERED: ONDANSETRON 4 MG TAB.RAPDIS PO PRN (10:04)
[2019-08-19] MEDS ORDERED: IBUPROFEN 600 MG TABLET PO PRN (10:06)
--- NOTE | 2019-08-19 16:14 | RADIOLOGY REPORT (SQ) ---
EXAM DESCRIPTION: MRI HEAD COMBO IMAGES COMPLETED DATE/TIME: 08/19/2019 1:49 pm REASON FOR STUDY: new onset seizures COMPARISON: CT brain 07/29/2019 MRI brain 02/18/2013 TECHNIQUE: Multiplanar imaging includes noncontrasted T1, T2, FLAIR, diffusion with ADC map and post gadolinium contrast T1 sequences. Images stored on PACS. CONTRAST TYPE AND DOSE: 10 mL Dotarem. RENAL FUNCTION: Not indicated. ACR Type II contrast agent associated with few, if any, unconfounded cases of NSF LIMITATIONS: None. FINDINGS: ANATOMY: No developmental anomalies. Normal vascular flow voids. Pituitary fossa normal. CSF SPACES: Normal in size and contour. No hemorrhage. CEREBRUM: Sulci and gyri normal in size and contour. Normal white matter signal on FLAIR imaging. No evidence of hemorrhage, mass, or extraaxial fluid collection. No abnormal enhancement post contrast. POSTERIOR FOSSA: No signal alteration. No hemorrhage. No edema, masses, or mass effect. Internal balta tory canals, cerebellopontine angles, mastoids normal. No enhancing lesions. No abnormal enhancement post contrast. DIFFUSION IMAGING: Negative for acute or subacute infarction. ORBITS: No masses. Globes normal. PARANASAL SINUSES: No fluid levels. Mucosa normal. OTHER: No other significant finding. IMPRESSION: NORMAL MRI OF THE BRAIN WITHOUT AND WITH INTRAVENOUS GADOLINIUM CONTRAST. EVIDENCE OF ACUTE STROKE: NO. TECHNICAL DOCUMENTATION: JOB ID: [id number] 2010 [employer]- All Rights Reserved Reading location - IP/workstation name: [email or web address]
--- NOTE | 2019-08-19 17:23 | PDOC PROGRESS REPORT ---
Subjective Progress Note for:: 08/19/19 Subjective:: KAMERON GIPSON is a 24 year old female with a past medical history of obesity, asthma, fibromyalgia admitted early this morning by the mortgage loan officer for new onset seizure activity. Patient was seen on morning rounds. She was found resting in bed, comfortably, on room air. She was sleeping but woke easily when I said her name. She reports that she can't remember anything from the previous day, states that she does not remember meeting me. She is able to tell me that she came by ambulance for seizures. She then becomes tearful and is noted to begin a stutter to the first word of each sentence; occasionally repeating the first sound and occasionally the entire word. The intensity of the stutter worsens as our conversation continues. She asks me to resume her home medications, especially the Topiramate, as she "had a migraine all day yesterday." She tells me that she has been on the Toprimate for nearly a year. She asks about timing for discharge and is informed that we are conducting a thorough seizure work up and that mental health services will want to meet with her again today. She tells me that she is unable to sit or stand up because she "feels like I don't have any muscle strength in my stomach." Otherwise, she denies fever, dizziness, chest pain, and difficulty breathing. She does confirm nausea and asks for medication. She has no other questions or concerns. Discussed patient status and plan of care with nursing throughout the day. Reason For Visit: SEIZURE Physical Exam Vital Signs: Temp Pulse Resp BP Pulse Ox 98.9 F 98 16 123/75 99 08/19/19 14:58 08/19/19 14:58 08/19/19 14:58 08/19/19 14:58 08/19/19 14:58 Intake & Output 08/18/19 08/19/19 08/20/19 06:59 06:59 06:59 Output Total 801 Balance -801 Weight 91.1 kg 88 kg General appearance: PRESENT: no acute distress, well-developed, well-nourished - overweight Head exam: PRESENT: atraumatic, normocephalic Eye exam: PRESENT: conjunctiva pink, EOMI, PERRLA. ABSENT: scleral icterus Mouth exam: PRESENT: moist, tongue midline Respiratory exam: PRESENT: clear to auscultation oneil, symmetrical, unlabored. ABSENT: rales, rhonchi, wheezes Cardiovascular exam: PRESENT: RRR, +S1, +S2. ABSENT: diastolic murmur, rubs, systolic murmur Pulses: PRESENT: normal dorsalis pedis pul Vascular exam: PRESENT: normal capillary refill Extremities exam: PRESENT: full ROM. ABSENT: calf tenderness, clubbing, pedal edema Neurological exam: PRESENT: alert, awake, oriented to person, oriented to place, oriented to time, oriented to situation, CN II-XII grossly intact. ABSENT: motor sensory deficit Psychiatric exam: PRESENT: anxious, depressed. ABSENT: homicidal ideation, kuldip cidal ideation Skin exam: PRESENT: dry, intact, warm. ABSENT: cyanosis, rash Results Laboratory Results: 08/18/19 01:21 08/19/19 08:37 08/19/19 08/19/19 08:37 08:37 Sodium 137.9 Potassium 4.2 Chloride 105 Carbon Dioxide 22 Anion Gap 11 BUN 10 Creatinine 0.92 Est GFR ( Amer) > 60 Glucose 132 H Lactic Acid 1.0 Calcium 9.6 08/18/19 08/18/19 08/19/19 01:21 08:00 08:37 Creatine Kinase 133 92 CK-MB (CK-2) 1.46 Troponin I < 0.012 Impressions: Chest X-Ray 08/18/19 01:06 IMPRESSION: No evidence of active intrathoracic disease. Lungs of low volume but clear Head CT 08/18/19 01:06 IMPRESSION: No acute intracranial process is identified. Head MRI 08/19/19 00:00 IMPRESSION: NORMAL MRI OF THE BRAIN WITHOUT AND WITH INTRAVENOUS GADOLINIUM CONTRAST. EVIDENCE OF ACUTE STROKE: NO. Assessment and Plan - Diagnosis (1) Seizure Is this a current diagnosis for this admission?: Yes Plan: Pseudoseizure. Possibly related to polypharmacy with new addition of Lyrica started 3 days ago. CBC normal, BMP unremarkable. Normal troponin, normal TSH. Normal CK, normal lactic acid. Repeat CK and Lactic acid have actually trended down despite numerous seizure-like events since admission. Head CT benign. EEG was mildly abnormal with excessive beta activity which is commonly seen with benzodiazepine; patient received 2 mg of Ativan ~ 3.5 hrs prior to testing. Head MRI is normal. Received outpatient sleep study report. Normal study; negative for FARIDEH. Spoke with Dr. Varghese, patient's neurologist, yesterday. Dr. Varghese confirms that she was seen at [place] [facility] and had an extensive work-up that was ultimately normal. She was discharged from their practice with a diagnosis of fibromyalgia. Dr. Varghese stated that he had seen the patient in his office for a follow up appointment yesterday morning and had informed her that he would no longer providing for her care or writing her prescriptions. He indicated to me that he was concerned the patient might be displaying symptoms of Munchhausen's. Patient received appropriate loading dose of IV Dilantin. No further Dilantin dosing at this time as I am confident patient is displaying pseudoseizures. I do not think that additional medication prescriptions will benefit this patient. In fact, focus should be spent on decreasing the patient's anxiety regarding chronic health problems and reducing her medications. Ativan is discontinued. Mental health consultation requested; plan for further evaluations. (2) Fibromyalgia Is this a current diagnosis for this admission?: Yes Plan: Complicated by polypharmacy Likely underlying depressive disorder. Lyrica discontinued. Continue home dose Cymbalta. Mental Health consultation pending. (3) Polypharmacy Is this a current diagnosis for this admission?: Yes Plan: Medications reconcilled Currently prescribed Amitiza, Cymbalta, Lyrica, primidone, Topamax, Zanaflex, Zyrtec, Singulair, Flonase. Only Cymbalda, Zyrtec, and Flonase continued at this time. Recommend PCP discontinue as many medications as tolerated. (4) Migraine Is this a current diagnosis for this admission?: Yes Plan: Patient reports hx of migraines. Her normal medication regiment is on hold r/t polypharmacy. Additionally, many of her medications have side effects similar to her complaints of fatigue, dizziness, tingling of extremities; including the Topiramate. Will hold on resuming this until medication recommendations have been recieved by mental health services. Tylenol and Motrin as needed for mild headache. Will consider Imitrex for moderate to severe headache; though will want to provide face to face assessment before ordering. - Plan Summary Summary: Patient is medically cleared for discharge. Mental Health is continuing their evaluation. Will hold on discharging as I am concerned about the patient and would like to have a clear psychiatric follow up plan established prior to d/c. - Time Time Spent with patient: 35 or more minutes Medications reviewed and adjusted accordingly: Yes Anticipated discharge: Home Within: Other - pending Mental Health.
--- NOTE | 2019-08-19 17:33 | PDOC CONSULTATION ---
Consultation-Blank Consultation: Review of Patient provider, lab, imaging, psychosocial, and nursing notes reveals a clinical picture of a young lady who is experiencing a great deal of internal and external stress that is manifesting itself medically, more specifically, in the form of pseudoseizures. Records reveal the Patient has multiple witnessed seizures by professionals that at first glance, appear neurological in nature. However, when patient is advised the medical provider is present the seizure symptoms appear to worsen, and when medical intervention applied, the symptoms rapidly decline with unusual patient presentation to follow (i.e. "It happened again didn't it?").Moreover, the patient is noted to lack the "typical" physical reactions following her seizures such as incontinence, tongue biting, vomiting, etc. Upon further examination of Patient records it is found the patient began experiencing a great deal of stress approximately one year ago per her fiance. 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 She experiences migraine headaches and has been treated "successfully" with Topamax for the last 2 years. Per Patient, she was diagnosed with Fibromyalgia approximately 3 months ago and placed on Cymbalta 60 mg daily and Zanaflex by her primary care physician. Patient's fiance supports patient's report of Fibromyalgia and states over the past year he has watched her"slow down" in all activities, though she continues to complete her tasks. Patient admits to social isolation during the COVID-19 pandemic which adds to her current stress level. Provider notes indicate the Patient was previously seen at [facility] for seizure and MS work-up with results yielding no evidence of either. 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 The following day the Patient admitted to [facility] for seizures. During her admission, the Patient is observed to have ongoing seizures with periods where she was responsive and other times where she reportedly became "unresponsive." One of the witnessed seizures was during her mental health consultation and while the clinician was speaking with the Patient's fiance. Reportedly, while the clinician was obtaining information from the fiance and asking detailed questions about the Patient, the Patient began seizing requiring the clinician to hangup with the fiance and request medical assistance from the nursing staff. This was a time when she was not responsive to the staff. Imaging studies were completed and returned with results within normal limits, suggesting no intracranial abnormalities or immediate process contributing to the Patient's reported seizure process. These results are reportedly consistent with results obtained from the Patient's local Neurologist. 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 It should be noted that PNES do not equate to Munchausen or even faking. PNES is a physical manifestation of psychological distress and an expression of genuine distress that the Patient is not making up. Consistent with PNES, when the Patient was asked about her neurologist discontinuing her medication and discharging her from his practice, she provided a response of denial or distortion that did not represent what the neurologist told the provider. In summary, the Patient will require outpatient cognitive behavioral therapy to address her psychological distress and current lack of coping resources to deal with her personal and family stress. She would likely benefit from a medication regiment that includes antidepressant and anti-anxiety medications to address her depression and anxiety that is feeding her emotional distress. Currently she is prescribed Cymbalta 60 mg to address her Fibromyalgia, which is likely exacerbated by her depression. Patient does not meet inpatient hospitalization criteria as she is not suicidal or homicidal and does not have a history of such. Her fiance explained she continues to participate and complete activities of daily living, just not as quickly as previously. Moreover, continuing in a structured day will help her to stay focused on others versus her perceived medical conditions, and coupled with therapy and medication management, allow her to move forward in life. Recommendations: 1. Clear from acute psychiatric services. 2. Follow up with outpatient mental health for Cognitive Behavior Therapy to address: a. coping b. cognitive distortions c. life changes 3. Follow up outpatient mental health for Medication Management for depression and anxiety: Medications per consulting psychiatrist: a. Continue Cymbalta 60 mg daily b. Add Buspar 5 mg twice per day 4. Discuss this consult with your primary care provider so he can assist and support recovery. Thank you for this kind referral. Please do not hesitate to contact the Behavioral Health Office at [phone] with any questions.
[2019-08-19] MEDS ORDERED: TOPIRAMATE 25 MG TABLET PO SCH (22:00)
[2019-08-19] MEDS ORDERED: TOPIRAMATE 100 MG PO SCH (22:00)
[2019-08-19] MEDS: MELATONIN 3 MG TABLET PO SCH (22:28)
[2019-08-19] MEDS: BUSPIRONE HCL 10 MG TABLET PO SCH (22:28)
[2019-08-19] MEDS: TOPIRAMATE 25 MG TABLET PO SCH (22:29)
[2019-08-20] MEDS ORDERED: ATROPINE SULFATE INJ 1 MG/10 ML DISP.SYRIN IV ONE (00:58)
[2019-08-20] MEDS: HEPARIN SOD (PORCINE) 5,000 UNIT/ML 1 ML VIAL SUBCUT SCH (05:36)
[2019-08-20] MEDS: BUSPIRONE HCL 10 MG TABLET PO SCH (10:00)
[2019-08-20] MEDS: DULOXETINE HCL 30 MG CAPSULE.DR PO SCH (10:00)
[2019-08-20] MEDS: METOPROLOL SUCCINATE 25 MG TAB.SR.24H PO SCH (10:01)
[2019-08-20] MEDS: TOPIRAMATE 25 MG TABLET PO SCH (10:01)
[2019-08-20] MEDS: CETIRIZINE 10 MG TABLET PO SCH (10:01)
[2019-08-20 13:18] VITALS: BP 112/68
--- NOTE | 2019-08-20 18:52 | PDOC DISCHARGE SUMMARY ---
Impression - Admit/DC Date/PCP Admission Date/Primary Care Provider: 08/18/19 05:15 Discharge Date: 08/20/19 - Discharge Diagnosis (1) Psychogenic nonepileptic seizure Is this a current diagnosis for this admission?: Yes (2) Fibromyalgia Is this a current diagnosis for this admission?: Yes (3) Polypharmacy Is this a current diagnosis for this admission?: Yes (4) Migraine Is this a current diagnosis for this admission?: Yes (5) Seizure Is this a current diagnosis for this admission?: Yes (6) HTN (hypertension) Is this a current diagnosis for this admission?: Yes - Additional Information Resuscitation Status: Full Code Discharge Diet: Regular Discharge Activity: Activity As Tolerated, Balance Activity w/Rest Prescriptions: Buspirone HCl 1 tab PO BID #60 tab Metoprolol Succinate [Toprol Xl 25 mg Tab.sr] 12.5 mg PO BID #30 tab.sr.24h Home Medications: Albuterol Sulfate [Proair HFA Inhalation Aerosol 8.5 gm MDI] 1 puff IH Q4 08/18/19 Cetirizine HCl [Zyrtec 10 mg Tablet] 10 mg PO DAILY 08/18/19 Duloxetine HCl [Cymbalta 30 mg Capsule.dr] 60 mg PO DAILY 08/18/19 Fluticasone Propionate [Flovent Hfa 44 Mcg Inhalation Aerosol 10.6 gm] 2 puff IH BID 08/18/19 Lubiprostone [Amitiza 24 Mcg Capsule] 24 mcg PO DAILY 08/18/19 Melatonin [Melatin] 6 mg PO QHS 08/18/19 Montelukast Sodium [Singulair 10 mg Tablet] 10 mg PO QHS 08/18/19 Topiramate [Trokendi Xr] 100 mg PO QHS 08/18/19 Acetaminophen [Tylenol 325 mg Tablet] 650 mg PO Q4HP PRN tablet 08/20/19 Buspirone HCl 1 tab PO BID #60 tab 08/20/19 Ibuprofen [Motrin 600 mg Tablet] 600 mg PO Q8HP PRN tablet 08/20/19 Metoprolol Succinate [Toprol Xl 25 mg Tab.sr] 12.5 mg PO BID #30 tab.sr.24h 08/20/19 History of Present Illiness History of Present Illness: Per H&P by Dr. Sanchez: KAMERON GIPSON is a 24 year old female with a past medical history of obesity, asthma, fibromyalgia on Zanaflex, Cymbalta and Lyrica started 3 days ago. She presents after several witnessed partial seizures prompting a call to EMS who witnessed another seizure she received Versed. In the emergency department she had another seizure receiving Ativan, Benadryl and Dilantin. Patient is awake and alert with odd affect and echolalia moving all 4 extremities denying pain. Work-up was otherwise unremarkable for metabolic derangement or CT head abnormality. She is referred to the hospitalist for admission. Hospital Course Hospital Course: (1) Seizure Pseudoseizure. Possibly related to polypharmacy with new addition of Lyrica started 3 days ago. CBC normal, BMP unremarkable. Normal troponin, normal TSH. Normal CK, normal lactic acid. Repeat CK and Lactic acid have actually trended down despite numerous seizure-like events since admission. Head CT benign. EEG was mildly abnormal with excessive beta activity which is commonly seen with benzodiazepine; patient received 2 mg of Ativan ~ 3.5 hrs prior to testing. Head MRI is normal. Received outpatient sleep study report. Normal study; negative for FARIDEH. Spoke with Dr. Varghese, patient's neurologist, yesterday. Dr. Varghese confirms that she was seen at [facility] and had an extensive work-up that was ultimately normal. She was discharged from their practice with a diagnosis of fibromyalgia. Dr. Varghese stated that he had seen the patient in his office for a follow up appointment yesterday morning and had informed her that he would no longer providing for her care or writing her prescriptions. He indicated to me that he was concerned the patient might be displaying symptoms of Munchhausen's. Patient received appropriate loading dose of IV Dilantin. No further Dilantin dosing at this time as I am confident patient is displaying pseudoseizures. I do not think that additional medication prescriptions will benefit this patient. In fact, focus should be spent on decreasing the patient's anxiety regarding chronic health problems and reducing her medications. Ativan is discontinued. Mental health consultation requested; plan for further evaluations. (2) Fibromyalgia Complicated by polypharmacy Likely underlying depressive disorder. Lyrica discontinued. Continue home dose Cymbalta. Mental Health consultation pending. (3) Polypharmacy Medications reconcilled Currently prescribed Amitiza, Cymbalta, Lyrica, primidone, Topamax, Zanaflex, Zyrtec, Singulair, Flonase. Only Cymbalda, Zyrtec, and Flonase continued at this time. Recommend PCP discontinue as many medications as tolerated. (4) Migraine Patient reports hx of migraines. Her normal medication regiment is on hold r/t polypharmacy. Additionally, many of her medications have side effects similar to her complaints of fatigue, dizziness, tingling of extremities; including the Topiramate. Will hold on resuming this until medication recommendations have been recieved by mental health services. Tylenol and Motrin as needed for mild headache. Will consider Imitrex for moderate to severe headache; though will want to provide face to face assessment before ordering. (5) HTN Patient was noted to have elevated blood pressures; 140/90s and frequent tachycardia. She is started on low dose metoprolol for HTN, HR, and added benefit of beta- blockade assisting with her anxious disposition. Physical Exam Vital Signs: Temp Pulse Resp BP Pulse Ox 98.1 F 70 16 112/68 100 08/20/19 13:16 08/20/19 13:16 08/20/19 13:16 08/20/19 13:16 08/20/19 13:16 Intake & Output 08/19/19 08/20/19 08/21/19 06:59 06:59 06:59 Intake Total 972 120 Output Total 801 1400 Balance -801 -428 120 Weight 88 kg 84.8 kg General appearance: PRESENT: no acute distress, cooperative, obese, well- developed, well-nourished Head exam: PRESENT: atraumatic, normocephalic Eye exam: PRESENT: conjunctiva pink, EOMI, PERRLA. ABSENT: scleral icterus Ear exam: PRESENT: normal external ear exam Mouth exam: PRESENT: moist, tongue midline Respiratory exam: PRESENT: clear to auscultation oneil, symmetrical, unlabored. ABSENT: rales, rhonchi, wheezes Cardiovascular exam: PRESENT: RRR. ABSENT: diastolic murmur, rubs, systolic murmur Vascular exam: PRESENT: normal capillary refill Extremities exam: PRESENT: full ROM. ABSENT: calf tenderness, clubbing, pedal edema Musculoskeletal exam: PRESENT: ambulatory Neurological exam: PRESENT: alert, awake, oriented to person, oriented to place, oriented to time, oriented to situation, CN II-XII grossly intact. ABSENT: motor sensory deficit Psychiatric exam: PRESENT: appropriate affect, normal mood. ABSENT: homicidal ideation, suicidal ideation Skin exam: PRESENT: dry, intact, warm. ABSENT: cyanosis, rash Results Laboratory Results: WBC 11.5 10^3/uL (4.0-10.5) H 08/18/19 01:21 RBC 4.13 10^6/uL (3.72-5.28) 08/18/19 01:21 Hgb 12.0 g/dL (12.0-15.5) 08/18/19 01:21 Hct 34.5 % (36.0-47.0) L 08/18/19 01:21 MCV 84 fl (80-97) 08/18/19 01:21 MCH 29.1 pg (27.0-33.4) 08/18/19 01: MCHC 34.9 g/dL (32.0-36.0) 08/18/19 01:21 RDW 12.5 % (11.5-14.0) 08/18/19 01:21 Plt Count 412 10^3/uL (150-450) 08/18/19 01:21 Lymph % (Auto) 36.0 % (13-45) 08/18/19 01:21 [place] % (Auto) 6.6 % (3-13) 08/18/19 01:21 Eos % (Auto) 0.8 % (0-6) 08/18/19 01: Baso % (Auto) 0.5 % (0-2) 08/18/19 01:21 Absolute Neuts (auto) 6.5 10^3/uL (1.7-8.2) 08/18/19 01:21 Absolute Lymphs (auto) 4.2 10^3/uL (0.5-4.7) 08/18/19 01:21 Absolute Monos (auto) 0.8 10^3/uL (0.1-1.4) 08/18/19 01:21 Absolute Eos (auto) 0.1 10^3/uL (0.0-0.6) 08/18/19 01:21 Absolute Basos (auto) 0.1 10^3/uL (0.0-0.2) 08/18/19 01:21 Seg Neutrophils % 56.1 % (42-78) 08/18/19 01:21 Sodium 137.9 mmol/L (137-145) 08/19/19 08:37 Potassium 4.2 mmol/L (3.6-5.0) 08/19/19 08:37 Chloride 105 mmol/L (98-107) 08/19/19 08:37 Carbon Dioxide 22 mmol/L (22-30) 08/19/19 08:37 Anion Gap 11 (5-19) 08/19/19 08:37 BUN 10 mg/dL (7-20) 08/19/19 08:37 Creatinine 0.92 mg/dL (0.52-1.25) 08/19/19 08:37 Est GFR ( Amer) > 60 (>60) 08/19/19 08:37 Est GFR (MDRD) Non-Af > 60 (>60) 08/19/19 08:37 Glucose 132 mg/dL (75-110) H 08/19/19 08:37 Hemoglobin A1c % 5.8 % (4.7-6.0) 08/19/19 08:37 Lactic Acid 1.0 mmol/L (0.7-2.1) 08/19/19 08:37 Calcium 9.6 mg/dL (8.4-10.2) 08/19/19 08:37 Total Bilirubin 0.2 mg/dL (0.2-1.3) 08/18/19 01:21 Direct Bilirubin 0.0 mg/dL (0.0-0.4) 08/18/19 01:21 Neonat Total Bilirubin Not Reportable 08/18/19 01:21 Neonat Direct Bilirubin Not Reportable 08/18/19 01:21 Neonat Indirect Bili Not Reportable 08/18/19 01:21 AST 20 U/L (14-36) 08/18/19 01:21 ALT 23 U/L (<35) 08/18/19 01:21 Alkaline Phosphatase 61 U/L (38-126) 08/18/19 01:21 Creatine Kinase 92 U/L (30-135) 08/19/19 08:37 CK-MB (CK-2) 1.46 ng/mL (<4.55) 08/18/19 01:21 Troponin I < 0.012 ng/mL 08/18/19 01:21 Total Protein 7.0 g/dL (6.3-8.2) 08/18/19 01:21 Albumin 4.2 g/dL (3.5-5.0) 08/18/19 01:21 TSH 2.34 uIU/mL (0.47-4.68) 08/18/19 01:21 Beta HCG, Quant < 2.39 mIU/mL (0.0-6.15) 08/18/19 01:21 Total Beta HCG NEGATIVE (NEGATIVE) 08/18/19 01:21 Urine Color YELLOW 08/18/19 03:43 Urine Appearance CLEAR 08/18/19 03:43 Urine pH 6.0 (5.0-9.0) 08/18/19 03:43 Ur Specific May 1.013 08/18/19 03:43 Urine Protein NEGATIVE mg/dL (NEGATIVE) 08/18/19 03:43 Urine Glucose (UA) NEGATIVE mg/dL (NEGATIVE) 08/18/19 03:43 Urine Ketones NEGATIVE mg/dL (NEGATIVE) 08/18/19 03:43 Urine Blood NEGATIVE (NEGATIVE) 08/18/19 03:43 Urine Nitrite NEGATIVE (NEGATIVE) 08/18/19 03:43 Urine Bilirubin NEGATIVE (NEGATIVE) 08/18/19 03:43 Urine Urobilinogen NEGATIVE mg/dL (<2.0) 08/18/19 03:43 Ur Leukocyte Esterase TRACE (NEGATIVE) H 08/18/19 03:43 Urine WBC (Auto) 2 /HPF 08/18/19 03:43 Urine RBC (Auto) 2 /HPF 08/18/19 03:43 Urine Bacteria (Auto) 3+ /HPF 08/18/19 03:43 Squamous Epi Cells Auto 1 /HPF 08/18/19 03:43 Urine Mucus (Auto) RARE /LPF 08/18/19 03:43 Urine Ascorbic Acid NEGATIVE (NEGATIVE) 08/18/19 03:43 Salicylates < 1.0 mg/dL (2.0-20.0) L 08/18/19 01:21 Urine Opiates Screen NEGATIVE 08/18/19 03:43 Urine Methadone Screen NEGATIVE 08/18/19 03:43 Ur Barbiturates Screen NEGATIVE 08/18/19 03:43 Ur Phencyclidine Scrn NEGATIVE 08/18/19 03:43 Ur Amphetamines Screen NEGATIVE 08/18/19 03:43 U Benzodiazepines Scrn UNCONFIRMED POSITIVE 08/18/19 03:43 Urine Cocaine Screen NEGATIVE 08/18/19 03:43 U Marijuana (THC) Screen NEGATIVE 08/18/19 03:43 Serum Alcohol < 10 mg/dL (NONE DETECTED) 08/18/19 01:21 08/18/19 01:21 CK-MB (CK-2) 1.46 Troponin I < 0.012 Impressions: Chest X-Ray 08/18/19 01:06 IMPRESSION: No evidence of active intrathoracic disease. Lungs of low volume but clear Head CT 08/18/19 01:06 IMPRESSION: No acute intracranial process is identified. Head MRI 08/19/19 00:00 IMPRESSION: NORMAL MRI OF THE BRAIN WITHOUT AND WITH INTRAVENOUS GADOLINIUM CONTRAST. EVIDENCE OF ACUTE STROKE: NO. Plan Plan of Treatment: Patient is discharged home in stable condition. Clinical evaluation and discharge instructions were discussed with patient and her mother (by phone). Yamilet (mental health) was also present and participated in the conversation. She is instructed to follow up with her primary care provider within 1 week. She is highly encouraged to establish with a cognitive behavioral therapist and psychiatrist. She is instructed to return to the emergency department as needed for concerning symptoms. Time Spent: Greater than 30 Minutes Stroke Is this a Stroke Patient?: No Acute Heart Failure - Is this a Heart Failure Patient?: No
--- NOTE | 2019-08-21 13:20 | PSYCHOLOGICAL NOTE ---
Psych Note - Psych Note Date seen by psych provider: 08/20/19 Time seen by psych provider: 12:20 - [id number] Psych Note: Accompanied Attending Hospitalist Anna Drake in providing education regarding pseudoseizures, how the hospital team came to this determination, what it means and recommendations for moving forward with treatment. Patient had mother on Facetime and gave verbal consent to speak freely. 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 Talked about medication management for depression and anxiety (hospital recommendations Cymbalta 60MG QD and Buspar 5MG BID) and CBT therapy to address coping, cognitive distortions (how her brain is thinking and interpreting things) and life changes. Also noted the importance of keeping PCM informed so he can be an additional professional support. Provided (and went over) outpatient MH resource sheet which highlighted both MCM numbers for crisis/talk therapy/linkage, started agencies like [facility] for outpatient services and documented CBT therapy. Mother stated she will help patient get linked to her outpatient MH provider which is [facility]. Suggested they call first thing Wednesday morning to schedule appointment.
== END 2019-08-20 13:57 | disposition home or self-care (01) ==
LOC: ER 00:39 → EH 05:15 → INTOOBSV 05:15 → 4N 06:55
PROVIDERS: ADMIT Internal Medicine; ATTEND Registered Nurse
DX: F44.5 Conversion disorder with seizures or convulsions (principal); M79.7 Fibromyalgia; Z79.899 Other long term (current) drug therapy; G43.909 Migraine, unspecified, not intractable, without status migrainosus; I10 Essential (primary) hypertension; J45.909 Unspecified asthma, uncomplicated; R94.01 Abnormal electroencephalogram [EEG]; R00.0 Tachycardia, unspecified; E66.9 Obesity, unspecified; F32.9 Major depressive disorder, single episode, unspecified; F41.9 Anxiety disorder, unspecified; Z73.3 Stress, not elsewhere classified
CPT/HCPCS: 95819 ×2; 93005; 99291; 99292; 96375; 96365; 36415 ×2; 82553; 80307 ×3; 82550 ×2; 84702; 83605 ×2; 84443; 85025; 80048; 80053; 81001; 84484; 83036; 70553; 71045; 70450; 93010; 97161; A9576; J3490 ×15; J1200; S0119; J2060; J1165